=== PATIENT | male | born 1960 | race Caucasian/White ===

== ENCOUNTER 2020-01-03 08:32 | Emergency (ER) | payer SELFPAY ==
[~2020-01-03] VITALS: Ht 185.4 cm; Wt 97.5 kg
[2020-01-03] MEDS ORDERED: TETRACAINE HCL 0.5% OPTH SOLN 4 ML BTL OP ONE (09:00)
[2020-01-03] MEDS ORDERED: FLUORESCEIN SOD(OPTH) 1 MG STRP OP ONE (09:00)
[2020-01-03] MEDS ORDERED: TETANUS/DIPHTHERIA TOX ADULT 0.5 ML SYR IM ONE (09:15)
[2020-01-03] MEDS ORDERED: FLUORESCEIN SOD(OPTH) 1 MG STRP ONE (09:28)
[2020-01-03 09:44] VITALS: BP 136/78
== END 2020-01-03 09:45 | disposition home or self-care (01) ==
LOC: ER 08:48
DX: T20.56XA Corrosion of first degree of forehead and cheek, initial encounter (principal); T20.54XA Corrosion of first degree of nose (septum), initial encounter; T21.51XA Corrosion of first degree of chest wall, initial encounter; T22.511A Corrosion of first degree of right forearm, initial encounter; T54.2X1A Toxic effect of corrosive acids and acid-like substances, accidental (unintentional), initial encounter; Y99.0 Civilian activity done for income or pay; E03.9 Hypothyroidism, unspecified; E78.5 Hyperlipidemia, unspecified
CPT/HCPCS: 90471; 90714; 99284